=== PATIENT | male | born 1995 | race Caucasian/White ===

== ENCOUNTER 2017-03-02 13:05 | Inpatient (IN) | payer BC, OTHER ==
[~2017-03-02] VITALS: Ht 182.9 cm; Wt 93.0 kg
[2017-03-02 21:30] VITALS: BP 138/74
[2017-03-02] MEDS ORDERED: DIAZEPAM 5 MG TABLET PO PRN (22:30)
[2017-03-02] MEDS ORDERED: MAGNESIUM HYDROXIDE 30 ML LIQUID UDC PO PRN (22:30)
[2017-03-02] MEDS ORDERED: diphenhydrAMINE 50 MG CAPSULE PO PRN (22:30)
[2017-03-02] MEDS ORDERED: IBUPROFEN 600 MG TABLET PO PRN (22:30)
[2017-03-02] MEDS ORDERED: MAG HYDROX/AL HYDROX/SIMETH 30 ML LIQUID UDC PO PRN (22:30)
[2017-03-02] MEDS ORDERED: ONDANSETRON ODT 4 MG TAB.RAPDIS SL PRN (22:30)
[2017-03-02] MEDS ORDERED: CLONIDINE HCL 0.1 MG TABLET PO PRN (22:30)
[2017-03-02] MEDS ORDERED: DICYCLOMINE HCL 20 MG TABLET PO PRN ×2 (22:30)
[2017-03-02] MEDS ORDERED: LOPERAMIDE HCL 2 MG CAPSULE PO PRN ×2 (22:30)
[2017-03-02] MEDS ORDERED: ONDANSETRON 4 MG/2 ML VIAL IM PRN (22:30)
[2017-03-02] MEDS ORDERED: ACETAMINOPHEN 325 MG TABLET PO PRN (22:30)
[2017-03-02] MEDS ORDERED: LORAZEPAM 2 MG/1 ML VIAL IM PRN (22:30)
[2017-03-02] MEDS ORDERED: HYDROXYZINE PAMOATE 25 MG CAPSULE PO PRN (22:30)
[2017-03-02] MEDS ORDERED: BACLOFEN 20 MG TABLET PO PRN (22:30)
[2017-03-02] MEDS ORDERED: MIRALAX 17 GM POWD.PACK PO PRN (22:30)
[2017-03-02] MEDS ORDERED: DIAZEPAM 10 MG TABLET PO PRN ×2 (22:30)
--- NOTE | 2017-03-02 22:30 | NUR ---
Admission Patient is a 22-year-old male, arriving from [facility], to receive treatment for his reported Benzodiazepine Dependence, admitted under the care of Dr. Spring. Patient was escorted on to unit to his room by male LACTATION COORDINATOR, where body check was rendered. Skin check was rendered by primary nurse with skin noted intact. Patient was able to provide Admission Urine Drug Screen upon arrival on the unit. He is alert, oriented, ambulatory with no assistance needed. Breathing even and non labored with no signs of pain or discomfort noted. Patient is cooperative with admission process but verbalizes feelings of anxiety and racing thoughts. Admission Vital signs rendered and noted as 138/74, 83, 98.6, 18, 99%, 0/10. Patients height noted as 60 and weight noted as 205lbs. Patient verbalized No known allergies, wishes to be full code, following a Regular diet. Patient denies any suicidal or homicidal thoughts. Bowel sounds active in all quadrants with LBM verbalized 03/01/17. Patient reports past medical history of Anxiety, Bipolar, Back injury and Shoulder injury in 2010. Patient reports no history of seizure. Patients verbalizes chief complaint as "Im abusing my prescription medication," He explains his use as: 1. Xanax , since 2013, 8mg PO daily, last use 03/01/17 2. Klonopin, since 2013, 4mg PO daily, last use 02/27/17 3. Marijuana, since 2006, quarter of an oz via inhalation daily, Last use 03/02/17 4. Hydrocodone, since 2013, 20mg 1-2 a week, last use 02/27/17 5. Cocaine, Since 2013, 1-2 lines last use 02/27/17 He is able to report his signs and symptoms of withdrawal as "loss of appetite, cant sleep, anxiety, muscle spasms, Restlessness, rapid thoughts, cant concentrate." Patient currently employed cleaning carpets and window washing. He lives at home with his mother. This is the patients first treatment admission. No home medications noted with patient but patient reports of taking Zyprexa 10mg QHS for Bipolar. Patient states it really helps me to sleep. Patient also reports of not abusing Zyprexa medication. Admission CIWA noted at 8. Dr. Spring present during preadmission in intake. All information reviewed with MD with orders for labs to be rendered and PRN Medications available for increased signs and symptoms of Withdrawal. Patient to receive Valium 20mg at 2300 and will start a 5 day Valium tomorrow 03/04/17. Fall and Seizure precautions implemented. All needs attended to promptly. Will continue plan of care as ordered.
[2017-03-02 22:56] LABS: *AMPHETAMINE, URINE NEGATIVE (NEGATIVE); *BARBITURATE, URINE NEGATIVE (NEGATIVE); *CANNABINOID, URINE POSITIVE (NEGATIVE); *COCCAINE, URINE POSITIVE (NEGATIVE); *OPIATE, URINE POSITIVE (NEGATIVE); *PHENCYCLIDINE SCREEN,URINE NEGATIVE (NEGATIVE)
[2017-03-02] MEDS ORDERED: DIAZEPAM 10 MG TABLET PO SCH (23:00)
[2017-03-02] MEDS ORDERED: DIAZEPAM 10 MG TABLET ONE (23:12)
[2017-03-03 00:07] LABS: ETHANOL < 3 MG/DL (0-0)
[2017-03-03 00:10] VITALS: BP 109/63
[2017-03-03 00:11] LABS: ALANINE AMINOTRANSFERASE 32 U/L (16-63); ALBUMIN 3.9 g/dL (3.4-5.0); ALKALINE PHOSPHATASE 100 U/L (50-136); ASPARTATE AMINOTRANSFERASE 21 U/L (15-37); BILIRUBIN,TOTAL 0.3 mg/dL (0.2-1.0); CALCIUM 8.9 mg/dL (8.5-10.1); CARBON DIOXIDE 27 mmol/L (21-32); CHLORIDE 107 mmol/L (98-107); CREATININE 0.9 mg/dL (0.6-1.3); GFR 107 mL/min (>60); GLUCOSE 120 mg/dL (74-106); MAGNESIUM 1.9 mg/dL (1.8-2.4); POTASSIUM 3.8 mmol/L (3.5-5.1); SODIUM SERUM 145 mmol/L (136-145); TOTAL PROTEIN, SERUM 7.2 g/dL (6.4-8.2); UREA NITROGEN, BLOOD 14 mg/dL (7-18)
[2017-03-03 00:16] LABS: BASOPHILS # (AUTO) 0.1 K/uL (0.0-8.0); BASOPHILS % (AUTO) 0.5 % (0.0-2.0); EOSINOPHILS # (AUTO) 0.4 K/uL (0.0-0.7); HEMATOCRIT 42.8 % (36.7-47.1); HEMOGLOBIN 14.4 g/dL (12.5-16.3); LYMPHOCYTES # (AUTO) 2.5 K/uL (20.0-40.0); MEAN CORPUSCULAR HEMOGLOBIN 30.9 uug (23.8-33.4); MEAN CORPUSCULAR HGB CONC 34 g/dL (32.5-36.3); MEAN CORPUSCULAR VOLUME 91.5 fL (73.0-96.2); MONOCYTES # (AUTO) 0.8 K/uL (2.0-10.0); MONOCYTES % (AUTO) 6.9 % (0.0-11.0); NEUTROPHILS # (AUTO) 7.2 K/uL (1.8-8.9); NEUTROPHILS % (AUTO) 65.6 % (38.5-71.5); PLATELET COUNT (AUTO) 362 K/uL (152-348); RED BLOOD CELL COUNT(AUTO) 4.68 MIL/uL (4.06-5.63); RED CELL DISTRIBUTION WIDTH 12.4 % (12.1-16.2)
[2017-03-03 00:17] LABS: THYROID STIMULATING HORMONE 4.104 mIU/mL (0.358-3.740)
[2017-03-03 00:38] LABS: HIV-1 p24 ANTIGEN NON REACTIVE (NONREACTIVE); HIV-1/2 ANTIBODY NON REACTIVE (NONREACTIVE)
[2017-03-03] MEDS ORDERED: OLAN10TA3 PO (01:32)
[2017-03-03 04:15] VITALS: BP 120/66
--- NOTE | 2017-03-03 07:05 | NUR ---
Start of Shift Endorsement received from nightshift nurse. Pt is a 22 y/o male admitted for Xanax and Klonopin dependence. Pt has been palced on a 5 day Valium taper. Pt is tolerating the taper and moderately withdrawing at this time AEB CIWA 8 at 2300. PT received one time dose of Valium 20mg. PT did not receive any prn medications. Pt has slept 4 hours and reports feeling tired and wanting to sleep more. VS WNL. Full Code. PT is alert and oriented x4. Pt is in STABLE condition at this time. Remains compliant with medication and diet regimen. All needs have been met, All safety measures in place per hospital policy. Bed in lowest position, side rails up x2, call-light within reach. Will continue to monitor
--- NOTE | 2017-03-03 07:11 | NUR ---
End of Shift Patient is in bed sleeping. Breathing even and non labored. No signs of pain or discomfort noted. Patient is a 22 year old male, admitted on 03/02/14 for Benzo Dependence and placed on a 5 day Valium taper to start this morning 03/03/17 0900. Patient verbalizes no known allergies, wishes to be full code, following a regular diet, skin noted intact, placed on fall and seizure precautions. Patient verbalized past medical history of Anxiety, Bipolar, lower back injury, as well as right shoulder injury. Admission CIWA noted to be 8. Patient was given a onetime dose of Valium 20mg. Patient was able to tolerate well with no noted increased signs and symptoms of withdrawal. All needs attended to promptly. Will endorse to continue plan of care as ordered.
[2017-03-03 08:00] VITALS: BP 120/72
[2017-03-03] MEDS ORDERED: TUBERCULIN,PURIF.PROT.DERIV. 5 TU/0.1 ML TEST ID ONE (09:00)
[2017-03-03] MEDS ORDERED: GABAPENTIN 300 MG CAPSULE PO SCH (09:00)
[2017-03-03] MEDS: MULTIVITAMINS,THERAPEUTIC TABLET PO SCH (09:11)
[2017-03-03] MEDS: DIAZEPAM 10 MG TABLET PO SCH ×4 (09:12→20:54)
[2017-03-03 12:00] VITALS: BP 110/76
[2017-03-03] MEDS ORDERED: DIAZEPAM 10 MG TABLET PO PRN ×2 (15:00)
[2017-03-03] MEDS ORDERED: DIAZEPAM 5 MG TABLET PO PRN (15:00)
[2017-03-03 16:00] VITALS: BP 119/71
--- NOTE | 2017-03-03 19:10 | NUR ---
Start of Shift Patient Received. Patient is in activities room participating in group meeting. Patient is a 22 year old male, admitted on 03/02/14 for Benzo Dependence and placed on a 5 day Valium taper that started 03/03/17 0900. Patient verbalizes no known allergies, wishes to be full code, following a regular diet, skin noted intact, placed on fall and seizure precautions. Patient verbalized past medical history of Anxiety, Bipolar, lower back injury, as well as left shoulder injury. Per endorsement, No PRN medications administered. Patient was noted with CIWA of 3 at 1600. All needs attended to promptly. Will continue plan of care as ordered.
--- NOTE | 2017-03-03 19:22 | NUR ---
End of Shift Endorsement given to nightshift nurse. Pt is a 22 y/o male admitted for Xanax and Klonopin dependence. Pt has been placed on a 5 day Valium taper. Pt is tolerating the taper and moderately withdrawing at this time AEB CIWA 3 at 1600. PT did not receive any PRN medications. Pt participated in groups and activities.Intake: 2850ml, Void x3, BM x2. VS WNL. Full Code. PT is alert and oriented x4. Pt is in STABLE condition at this time. Remains compliant with medication and diet regimen. All needs have been met, All safety measures in place per hospital policy. Bed in lowest position, side rails up x2, call-light within reach. Will continue to monit
[2017-03-03 20:47] VITALS: BP 151/91
[2017-03-03] MEDS: GABAPENTIN 300 MG CAPSULE PO SCH (20:54)
[2017-03-03] MEDS: OLANZAPINE 5 MG TABLET PO SCH (20:54)
[2017-03-03] MEDS ORDERED: Medication Not On Formulary EA (Olanzapine (Zyprexa) 10 MG) PO SCH (21:00)
[2017-03-04] VITALS (7 sets, daily range): BP systolic 106–153; BP diastolic 51–102
--- NOTE | 2017-03-04 07:06 | NUR ---
End of Shift Patient is in bed sleeping. Breathing even and non labored. No signs of pain or discomfort noted. Patient is a 22 year old male, admitted on 03/02/14 for Benzo Dependence and placed on a 5 day Valium taper that started 03/03/17 0900. Patient verbalizes no known allergies, wishes to be full code, following a regular diet, skin noted intact, placed on fall and seizure precautions. Patient verbalized past medical history of Anxiety, Bipolar, lower back injury, as well as left shoulder injury. No PRN medications administered. All needs attended to promptly. Will endorse to continue plan of care as ordered.
--- NOTE | 2017-03-04 07:45 | NUR ---
START OF SHIFT NOTE Received report from night nurse, 22 year old male admitted for Benzo Dependence. Pt cont on a 5 day Valium taper. Skin noted intact, placed on fall and seizure precautions. Pt reported PMH of Anxiety, Bipolar, lower back injury, as well as left shoulder injury. Per endorsement, No PRN medications were administered. Last CIWA 2, slept for 7 hours. Per night nurse pt was medicated with potassium supplement for low Potassium level. Received pt asleep responsive to verbal and tactile stimuli, breathing normal no SOB noted, skin intact warm and dry to touch. Safety measures ion place, call light within reach. Will cont to monitor.
[2017-03-04 08:17] LABS: BASOPHILS % (AUTO) 0.2 % (0.0-2.0); EOSINOPHILS # (AUTO) 0.7 K/uL (0.0-0.7); EOSINOPHILS % (AUTO) 6.5 % (0.0-7.0); HEMATOCRIT 45.3 % (36.7-47.1); HEMOGLOBIN 15.5 g/dL (12.5-16.3); LYMPHOCYTES # (AUTO) 1.8 K/uL (20.0-40.0); LYMPHOCYTES % (AUTO) 17.1 % (20.5-51.5); MEAN CORPUSCULAR HEMOGLOBIN 31.5 uug (23.8-33.4); MEAN CORPUSCULAR HGB CONC 34 g/dL (32.5-36.3); MEAN CORPUSCULAR VOLUME 91.6 fL (73.0-96.2); MONOCYTES # (AUTO) 0.7 K/uL (2.0-10.0); MONOCYTES % (AUTO) 6.6 % (0.0-11.0); NEUTROPHILS # (AUTO) 7.6 K/uL (1.8-8.9); NEUTROPHILS % (AUTO) 69.6 % (38.5-71.5); PLATELET COUNT (AUTO) 344 K/uL (152-348); RED BLOOD CELL COUNT(AUTO) 4.94 MIL/uL (4.06-5.63); RED CELL DISTRIBUTION WIDTH 12.3 % (12.1-16.2); WHITE BLOOD COUNT (AUTO) 10.8 K/uL (3.6-10.2)
[2017-03-04] MEDS: MULTIVITAMINS,THERAPEUTIC TABLET PO SCH (08:25)
[2017-03-04] MEDS: GABAPENTIN 300 MG CAPSULE PO SCH ×2 (08:25→15:31)
[2017-03-04] MEDS ORDERED: DIAZEPAM 10 MG TABLET PO SCH (09:00)
[2017-03-04 10:37] LABS: CALCIUM 9.4 mg/dL (8.5-10.1); CREATININE 0.9 mg/dL (0.6-1.3); MAGNESIUM 1.9 mg/dL (1.8-2.4); PHOSPHOROUS 4.6 mg/dL (2.5-4.9); POTASSIUM 4.4 mmol/L (3.5-5.1)
[2017-03-04 10:38] LABS: FOLIC ACID 19.8 NG/ML (8.6-58.9)
[2017-03-04 11:27] LABS: THYROID STIMULATING HORMONE 1.64 mIU/mL (0.358-3.740)
[2017-03-04] MEDS: DIAZEPAM 10 MG TABLET PO SCH ×3 (12:26→20:56)
--- NOTE | 2017-03-04 12:35 | NUR ---
PRN ZOFRAN Pt c/o of nausea, non pharmacological intervention ineffective. Pt medicated with PRN Zofran 4mg SL as ordered. Will cont to monitor and reassess the pt.
--- NOTE | 2017-03-04 13:35 | NUR ---
REASSESSMENT Upon reassessment pt reported medication effective nausea subside.
[2017-03-04 16:59] LABS: FREE T4 (FREE THYROXINE) 0.85 ng/dL (0.76-1.46)
--- NOTE | 2017-03-04 17:44 | NUR ---
PRN ZOFRAN Pt c/o of nausea, non pharmacological intervention ineffective. Pt medicated with PRN Zofran 4mg SL as ordered. Will cont to monitor and reassess the pt. Addendum: 03/04/17 at 1904 by EDUARDO RAZO LVN ERROR IN CHARTING, PT DID NOT RECEIVE SECOND DOSE OF ZOFRAN.
[2017-03-04] MEDS ORDERED: DIAZEPAM 10 MG TABLET PO PRN ×2 (19:00)
[2017-03-04] MEDS ORDERED: DIAZEPAM 5 MG TABLET PO PRN (19:00)
--- NOTE | 2017-03-04 19:15 | NUR ---
Start of Shift Patient Received. Patient is in activities room participating in group meeting. Patient is a 22 year old male, admitted on 03/02/14 for Benzo Dependence and placed on a 5 day Valium taper that started 03/03/17. Patient verbalizes no known allergies, wishes to be full code, following a regular diet, skin intact, fall and seizure precautions. Patient verbalized past medical history of Anxiety, Bipolar, lower back injury, as well as left shoulder injury. Per endorsement, PRN Zofran administered at 1235 and noted effective. At 1600 Patient was noted with a CIWA of 2. All needs attended to promptly. Will continue plan of care as ordered.
--- NOTE | 2017-03-04 19:22 | NUR ---
END OF SHIFT NOTE Gave report to night nurse, 22 year old male admitted for Benzo Dependence. Pt cont on a 5 day Valium taper. Skin noted intact, placed on fall and seizure precautions. Pt reported PMH of Anxiety, Bipolar, lower back injury, as well as left shoulder injury. Pt received PRN medication noted effective. Pt attended groups and activities. Last CIWA-2. Pt's total intake 1650ml, Voidedx3, and x1 BM. Safety measures in place, call light within reach. Pt endorsed to night nurse in stable condition.
[2017-03-04] MEDS: OLANZAPINE 5 MG TABLET PO SCH (20:56)
[2017-03-04] MEDS ORDERED: GABAPENTIN 300 MG CAPSULE ONE (20:59)
[2017-03-04] MEDS ORDERED: GABAPENTIN 300 MG CAPSULE PO SCH (21:00)
--- NOTE | 2017-03-04 21:00 | NUR ---
PRN Medication Administration Patient noted to be returning from smoking patio. Blood pressure noted as 153/102 with a pulse of 125. Patient verbalized of smoking 5 cigarettes. PRN Clonidine 0.1mg administered with routine medications. Will continue to monitor for effectiveness of medication.
--- NOTE | 2017-03-04 22:00 | NUR ---
PRN Medication Reassessment Patient was given PRN Clonidine for elevated blood pressure and pulse. Blood pressure reassess and noted as 126/87 and pulse of 93. Will continue to monitor.
[2017-03-05 00:43] VITALS: BP 131/69
[2017-03-05 04:14] VITALS: BP 104/64
--- NOTE | 2017-03-05 07:01 | NUR ---
End of Shift Patient is in bed sleeping. Breathing even and non labored. No signs of pain or discomfort noted. Patient is a 22 year old male, admitted on 03/02/14 for Benzo Dependence and placed on a 5 day Valium taper that started 03/03/17 0900. Patient verbalizes no known allergies, wishes to be full code, following a regular diet, skin noted intact, placed on fall and seizure precautions. Patient verbalized past medical history of Anxiety, Bipolar, lower back injury, as well as left shoulder injury. PRN Clonidine administered for elevated BP and medication noted to be effective. All needs attended to promptly. Will endorse to continue plan of care as ordered.
--- NOTE | 2017-03-05 07:17 | NUR ---
START OF SHIFT NOTE Received report from night nurse, 22 year old male admitted for Benzo Dependence. Pt cont on a 5 day Valium taper. Skin noted intact, placed on fall and seizure precautions. Pt reported PMH of Anxiety, Bipolar, lower back injury, as well as left shoulder injury. Per endorsement, Pt received PRN Clonidine for high blood pressure medication effective per night nurse. Last CIWA 3, slept for 7 hours. Received alert awake oriented x4 in stable condition. Breathing normal no SOB noted, skin intact warm and dry to touch. Pt denies any N/V/D no tremors noted, mild anxiety noted. Educate the pt with current plan of the day and medication regimen with good verbal understanding. Safety measures ion place, call light within reach. Will cont to monitor.
[2017-03-05 08:00] VITALS: BP 108/62
[2017-03-05] MEDS: DIAZEPAM 10 MG TABLET PO SCH ×3 (08:18→21:19)
[2017-03-05] MEDS: MULTIVITAMINS,THERAPEUTIC TABLET PO SCH (08:18)
[2017-03-05] MEDS ORDERED: GABAPENTIN 300 MG CAPSULE PO SCH (09:00)
[2017-03-05] MEDS ORDERED: DIAZEPAM 5 MG TABLET PO SCH (09:00)
[2017-03-05] MEDS ORDERED: ASPIRIN/ACETAMINOPHEN/CAFFEINE TABLET PO PRN (11:30)
[2017-03-05 12:00] VITALS: BP 148/88
[2017-03-05] MEDS: DIVALPROEX 250 MG TABLET.DR PO SCH ×2 (13:41→16:41)
[2017-03-05] MEDS: GABAPENTIN 300 MG CAPSULE PO SCH ×2 (15:09→21:18)
[2017-03-05 16:00] VITALS: BP 145/92
--- NOTE | 2017-03-05 18:49 | NUR ---
END OF SHIFT NOTE Gave report to night nurse, 22 year old male admitted for Benzo Dependence. Pt cont on a 5 day Valium taper. Skin noted intact, placed on fall and seizure precautions. Pt reported PMH of Anxiety, Bipolar, lower back injury, as well as left shoulder injury. Pt attended groups and activities. Last CIWA-3. Vital signs remained stable. Pt was seen by MD with new order of Depakote 250mg started at 1300. Encourage Po fluids as tolerated. Pt's total intake 2091ml, Voidedx4, and x2 BM. Safety measures in place, call light within reach.Will endorse pt to night nurse in stable condition.
--- NOTE | 2017-03-05 19:30 | NUR ---
START OF SHIFT-- Pt is 22 year old male admitted for Benzo Dependence.Pt IS a/o x 4. Pt continues on a 5 day Valium taper. Skin noted intact, placed on fall and seizure precautions. Pt reported PMH of Anxiety, Bipolar, lower back injury, as well as left shoulder injury. Pt attended groups and activities. Last CIWA-3. Vital signs remained stable. PO fluids encouraged as tolerated. Safety measures in place, call light within reach.Will continue to monitor.
[2017-03-05 20:00] VITALS: BP 151/95
[2017-03-05] MEDS: OLANZAPINE 5 MG TABLET PO SCH (21:19)
[2017-03-06] VITALS: BP 117/77
[2017-03-06 04:00] VITALS: BP 118/68
[2017-03-06 06:02] LABS: HCV AB <0.1 s/co ratio (0.0-0.9); HEPATITIS B CORE AB, IgM Negative (Negative); HEPATITIS B SURFACE AG Negative (Negative)
--- NOTE | 2017-03-06 06:37 | NUR ---
END OF SHIFT-- Pt is 22 year old male admitted for Benzo Dependence.Pt IS a/o x 4. Pt continues on a 5 day Valium taper. Skin noted intact, placed on fall and seizure precautions. Pt reported PMH of Anxiety, Bipolar, lower back injury, as well as left shoulder injury. Pt is compliant with his treatment plan.He slept 7 hrs;fluid intake was 2790 ,voided x 4;b/m x 1 . Last CIWA-1. Vital signs remains stable. PO fluids encouraged as tolerated. Safety measures in place, call light within reach.Will continue to monitor
--- NOTE | 2017-03-06 07:44 | NUR ---
START OF SHIFT Received pt this am AOx4. Pt states he "slept good" last night. Slept 7 hours. No PRNs needed per night nurse. Last CIWA 1 per night nurse. Pt states detox meds are effective in controlling s/s of w/d. Encouraged group attendance and activities. Will provide safe and supportive environment. Pt laying in bed with bed locked and in lowest position and call disla within reach. Will continue to monitor.
[2017-03-06 08:04] VITALS: BP 129/73
[2017-03-06] MEDS: MULTIVITAMINS,THERAPEUTIC TABLET PO SCH (08:56)
[2017-03-06] MEDS: DIVALPROEX 250 MG TABLET.DR PO SCH ×3 (08:57→16:52)
[2017-03-06] MEDS: DIAZEPAM 5 MG TABLET PO SCH ×4 (08:57→22:24)
[2017-03-06] MEDS: GABAPENTIN 300 MG CAPSULE PO SCH ×3 (08:57→22:23)
[2017-03-06] MEDS ORDERED: DIAZEPAM 5 MG TABLET PO SCH (09:00)
[2017-03-06 12:00] VITALS: BP 149/79
[2017-03-06 16:00] VITALS: BP 142/83
--- NOTE | 2017-03-06 18:46 | NUR ---
END OF SHIFT: Pt continues on 5 day Valium taper and tolerating well. Last CIWA 1. No PRNs needed during shift. Detox meds are effective in managing s/s of w/d. Pt attended groups and activity today and socialized with peers. Pt is compliant with medications and treatment plan. All needs met. Safety measures in place. Will pass report to oncoming nurse.
[2017-03-06 20:00] VITALS: BP 146/90
--- NOTE | 2017-03-06 20:05 | NUR ---
START OF SHIFT Received report from day shift nurse. Pt attended a group meeting and returned to his room after. He is a 22 yo male admitted to [facility] on 03/02 for BZD dependence. He is A&O x4 and ambulatory. NKA, full code status, and on a regular diet. He has a PMH of anxiety, bipolar, lower back injury, and left shoulder injury. On admission he admitted to using xanax 8mg per day, klonopin 4mg/ day, marijuana 0.25 oz per day, hydrocodone 20mg 1-2x/week, and cocaine "1-2 lines". He is ordered a 5 day valium taper. Pt reports feeling anxious and has moist skin. Taper due tonight. He is cooperative with treatment. Fall and seizure precautions in place. Bed is down with call light in reach.
[2017-03-06] MEDS: CLONIDINE HCL 0.1 MG TABLET PO SCH (22:23)
[2017-03-06] MEDS: OLANZAPINE 5 MG TABLET PO SCH (22:24)
[2017-03-07] VITALS: BP 115/69
--- NOTE | 2017-03-07 04:00 | NUR ---
Vitals refused Pt refused to be woken for 0400 Vitals. CIWA ordered Q4HWA. Respirations even and unlabored. Bed is down with call light in reach.
--- NOTE | 2017-03-07 07:18 | NUR ---
END OF SHIFT Report provided to day shift nurse. Pt is lying in bed resting. He is a 22 yo male admitted to [facility] on 03/02 for BZD dependence. He is A&O x4 and ambulatory. NKA, full code status, and on a regular diet. He has a PMH of anxiety, bipolar, lower back injury, and left shoulder injury. On admission he admitted to using xanax 8mg per day, klonopin 4mg/ day, marijuana 0.25 oz per day, hydrocodone 20mg 1-2x/week, and cocaine "1-2 lines". He is ordered a 5 day valium taper. No PRN medications administered. He is cooperative with treatment. Last CIWA was 1. He drank 2650mL and slept 7 hours. Fall and seizure precautions in place. Bed is down with call light in reach.
--- NOTE | 2017-03-07 07:52 | NUR ---
START OF SHIFT NOTE Received report from night nurse, 22 year old male admitted for Benzo Dependence. Pt cont on a 5 day Valium taper tolerating well. Skin noted intact, placed on fall and seizure precautions. Pt reported PMH of Anxiety, Bipolar, lower back injury, as well as left shoulder injury. Per endorsement, Pt did not receive any PRN medication, Last CIWA 1, slept for 7 hours. Received alert awake oriented x4 in stable condition. Breathing normal no SOB noted, skin intact warm and dry to touch. Pt denies any N/V/D no tremors noted, mild anxiety noted. Educate the pt with current plan of the day and medication regimen with good verbal understanding. Safety measures ion place, call light within reach. Will cont to monitor.
[2017-03-07 08:00] VITALS: BP 117/70
[2017-03-07] MEDS: DIVALPROEX 250 MG TABLET.DR PO SCH ×3 (08:40→16:29)
[2017-03-07] MEDS: GABAPENTIN 300 MG CAPSULE PO SCH ×3 (08:40→21:51)
[2017-03-07] MEDS: CLONIDINE HCL 0.1 MG TABLET PO SCH ×2 (08:40→21:51)
[2017-03-07] MEDS: MULTIVITAMINS,THERAPEUTIC TABLET PO SCH (08:40)
[2017-03-07] MEDS: DIAZEPAM 5 MG TABLET PO SCH ×3 (08:40→21:51)
[2017-03-07] MEDS ORDERED: DIAZEPAM 5 MG TABLET PO SCH (09:00)
[2017-03-07 12:00] VITALS: BP 105/56
[2017-03-07 16:00] VITALS: BP 112/60
--- NOTE | 2017-03-07 17:30 | NUR ---
LAB RESULT MD COMMUNICATION Pt lab result came noted with low Valproic acid 29L. Psychiatrist notify with no new order at this time.
--- NOTE | 2017-03-07 19:02 | NUR ---
END OF SHIFT NOTE Gave report to night nurse, 22 year old male admitted for Benzo Dependence. Pt cont on a 5 day Valium taper. Skin noted intact, placed on fall and seizure precautions. Pt reported PMH of Anxiety, Bipolar, lower back injury, as well as left shoulder injury. Pt attended groups and activities. Last CIWA-1. Pt did not receive any PRN medication. Vital signs were stable during shift. Encouraged Po fluids as tolerated. Pt's total intake 2365ml, Voidedx4, and x1 BM. Safety measures in place, call light within reach. Pt endorsed to night nurse in stable condition.
--- NOTE | 2017-03-07 19:25 | NUR ---
START OF SHIFT Received report from day shift nurse. Pt attended a group meeting and returned to his room after. He is a 22 yo male admitted to [facility] on 03/02 for BZD dependence. He is A&O x4 and ambulatory. NKA, full code status, and on a regular diet. He has a PMH of anxiety, bipolar, lower back injury, and left shoulder injury. On admission he admitted to using xanax 8mg per day, klonopin 4mg/ day, marijuana 0.25 oz per day, hydrocodone 20mg 1-2x/week, and cocaine "1-2 lines". Pt started a 5 day valium taper on 03/03. Pt has moist skin and mild anxiety. Fall and seizure precautions in place. Bed is down with call light in reach. Addendum: 03/08/17 at 0355 by KING BOND RN Incorrect entry time.
[2017-03-07 20:00] VITALS: BP_SYST 147; BP_SYST 153; BP_DIAS 95; BP_DIAS 97
--- NOTE | 2017-03-07 20:10 | NUR ---
START OF SHIFT Received report from day shift nurse. Pt attended a group meeting and returned to his room after. He is a 22 yo male admitted to [facility] on 03/02 for BZD dependence. He is A&O x4 and ambulatory. NKA, full code status, and on a regular diet. He has a PMH of anxiety, bipolar, lower back injury, and left shoulder injury. On admission he admitted to using xanax 8mg per day, klonopin 4mg/ day, marijuana 0.25 oz per day, hydrocodone 20mg 1-2x/week, and cocaine "1-2 lines". Pt has moist skin and mild anxiety. Fall and seizure precautions in place. Bed is down with call light in reach.
[2017-03-07] MEDS: OLANZAPINE 5 MG TABLET PO SCH (21:51)
[2017-03-07 23:20] VITALS: BP 138/88
[2017-03-08] VITALS: BP 138/88
[2017-03-08 04:00] VITALS: BP 120/68
--- NOTE | 2017-03-08 04:00 | NUR ---
0400 COWS and CIWA deferred COWS and CIWA is ordered Q4HWA.
--- NOTE | 2017-03-08 07:21 | NUR ---
END OF SHIFT Report provided to day shift nurse. Pt is lying in bed resting. He is a 22 yo male admitted to [facility] on 03/02 for BZD dependence. He is A&O x4 and ambulatory. NKA, full code status, and on a regular diet. He has a PMH of anxiety, bipolar, lower back injury, and left shoulder injury. On admission he reported using xanax 8mg per day, klonopin 4mg/ day, marijuana 0.25 oz per day, hydrocodone 20mg 1-2x/week, and cocaine "1-2 lines". Pt is cooperative with treatment. No PRN medications administered. Last CIWA was 1. He drank 2038mL and slept for 6 hours. Fall and seizure precautions in place. Bed is down with call light in reach.
[2017-03-08 08:00] VITALS: BP 122/67
--- NOTE | 2017-03-08 08:00 | NUR ---
Start of Shift Pt is a 22 year old male admitted for benzo dependence, placed on 5 day Valium taper. PMH: anxiety, bipolar, lower back injury and left should injury, nka, regular diet, fall/seizure precautions. Upon assessment, pt is alert/oriented x4, reports mild anxiety, reports mild aches throughout body, skin flushed, respirations even and unlabored, denies SOB/chest pain, denies SI/HI, denies n/v/d, bowel sounds active x4, abdomen soft. Safety measures in place, call light within reach, side rails up x2, bed locked and in low position. Will continue to monitor.
[2017-03-08] MEDS: MULTIVITAMINS,THERAPEUTIC TABLET PO SCH (08:23)
[2017-03-08] MEDS: GABAPENTIN 300 MG CAPSULE PO SCH ×3 (08:23→21:27)
[2017-03-08] MEDS: DIVALPROEX 250 MG TABLET.DR PO SCH (08:23)
[2017-03-08] MEDS: DIAZEPAM 5 MG TABLET PO SCH ×2 (08:23→21:28)
[2017-03-08] MEDS: CLONIDINE HCL 0.1 MG TABLET PO SCH ×2 (08:33→21:28)
[2017-03-08 12:00] VITALS: BP 133/80
--- NOTE | 2017-03-08 12:11 | NUR ---
Therapist encouraged client to attend group.
[2017-03-08 16:00] VITALS: BP 136/80
[2017-03-08] MEDS: DIVALPROEX 500 MG TABLET.DR PO SCH (16:48)
[2017-03-08] MEDS ORDERED: DIVALPROEX 250 MG TABLET.DR PO SCH (17:00)
--- NOTE | 2017-03-08 19:00 | NUR ---
End of Shift Pt is a 22 year old male admitted for benzo dependence, placed on 5 day Valium taper. PMH: anxiety, bipolar, lower back injury and left should injury, nka, regular diet, fall/seizure precautions. During, pt presented with mild anxiety, reported mild aches throughout body, skin flushed - scheduled taper medications administered during shift, effective in management of s/s of withdrawal as reported by pt, CIWA 2 at 1600. PRN Milk of Magnesia 30ml administered for constipation, no reports of a bm as or yet, will endorse onto shiftman nurse to monitor effectiveness. Patient encouraged to attend group therapies/sessions to learn new coping skills. Patient encouraged adequate PO fluid intake as tolerated. Intake of 3009 ml PO, with voids x4, stool x1. Safety measures in place, call light within reach, side rails up x2, bed locked and in low position. Endorsed to shiftman nurse.
--- NOTE | 2017-03-08 19:15 | NUR ---
Start of Shit Note: Patient is a 22 y/o male admitted on 03/02/17 for Benzo dependence. Patient reported using Xanax 8mg daily and Klonopin 0.25 mg daily. Patient also reported using Marijuana 0.25 mg daily, [place] 20mg every 1-2 weeks, & Cocaine "1-2 lines daily". Patient with past medical history of Anxiety, Bipolar disorder, Lower Back injury & Left Shoulder Injury. No seizure history noted. Patient is on a regular diet with no known food and drug allergies. Full Code status. Patient is on a 5-day Valium taper and tolerating well. Last CIWA is 2. No PRN's given during day shift. Patient is alert & oriented. Patient is ambulatory with a steady gait. Patient noted with a flat affect. Patient is stable. No shortness of breath noted. Respiration even & unlabored. Abdomen soft & non-distended. Bowel sounds active in all four quadrants. No nausea/vomiting noted. Patient denies pain/discomfort. Bilateral hand tremors felt. No hallucinations. Patient denies SI/HI. Safety precautions are in place. Bed locked in lowest position. Both side rails up. Call light within pt's reach. Will continue to monitor patient.
[2017-03-08 20:00] VITALS: BP 153/85
[2017-03-08] MEDS: OLANZAPINE 5 MG TABLET PO SCH (21:28)
[2017-03-09] VITALS: BP 124/58
[2017-03-09 04:00] VITALS: BP 92/57
--- NOTE | 2017-03-09 07:30 | NUR ---
End of Shift Note: Patient had an uneventful night. Patient remained stable throughout my shift. Vitals remains WNL. Last CIWA 2 noted. Pt was not given any PRN medications during my shift. Patient remained compliant in treatment plan. Pt still asleep at this time and appears comfortable in bed. No shortness of breath noted. Respiration even & unlabored. Patient was able to sleep for a total of 6 hours. Consumed 2128ml of fluids. Voided 3x with 2x bowel movement. All needs attended & met. Safety precautions are in place. Bed locked in lowest position. Both side rails up. Call light within pt's reach. Will endorse pt to day shift nurse.
--- NOTE | 2017-03-09 07:40 | NUR ---
Start Of Shift Received Pt is a 22 year old male admitted for benzo dependence, completed his 5 day Valium taper. NKA, regular diet, continues on fall/seizure precautions. Upon morning assessment, pt is alert/oriented x4, reports mild anxiety, skin flushed, respirations even and unlabored . No PRNs needed during burner technician per burner technician RN. Pt slept a total of 6 hours, his last CIWA was a 2 taken at 0400. Encouraged increased fluids to help facilitate detox. Will provide safe and supportive environment. All safety measures in place, bed locked in lowest position, side rails upx2 will continue to monitor and provide care.
[2017-03-09 08:00] VITALS: BP 114/71
[2017-03-09] MEDS: CLONIDINE HCL 0.1 MG TABLET PO SCH ×2 (09:00→21:41)
[2017-03-09] MEDS: DIVALPROEX 500 MG TABLET.DR PO SCH ×2 (09:00→17:45)
[2017-03-09] MEDS: GABAPENTIN 300 MG CAPSULE PO SCH ×3 (09:00→21:41)
[2017-03-09] MEDS: MULTIVITAMINS,THERAPEUTIC TABLET PO SCH (09:00)
[2017-03-09 12:00] VITALS: BP 124/79
--- NOTE | 2017-03-09 12:18 | NUR ---
Therapist encouraged client to attend group therapy session.
[2017-03-09 16:00] VITALS: BP 129/67
--- NOTE | 2017-03-09 19:02 | NUR ---
End Of Shift Pt is a 22 year old male admitted for Benzo dependency. Full code regular diet continues to be on fall and seizure precautions, NKA. Patient alert and oriented x4, vital signs were stable during shift. Patient compliant with therapeutic plan of care. Patient completed the 5 day Valium taper as ordered, well tolerated, no ASE noted. Pt to be discharged tomorrow. Patient encouraged adequate PO fluid intake as tolerated. Upon assessment patient presented with c/o chills, mild anxiety, and barely sweating with his last CIWA score of: 2 @1600. Detox medication effective at reducing withdrawal symptoms. Patient encouraged to attend group therapies/sessions to learn new coping skills to recent relapse, noted attending and participating, patient denies SI/HI. Pt ate all of his meals his total fluid intake was 2128ml with 2 void and 1 bowel movement , No PRN medications administered. Safety measures in place. Call light kept within reach. Patient endorsed to hourly shift manager nurse, all pertinent information discussed.
[2017-03-09 19:03] LABS: *AMPHETAMINE, URINE NEGATIVE (NEGATIVE); *BARBITURATE, URINE NEGATIVE (NEGATIVE); *CANNABINOID, URINE POSITIVE (NEGATIVE); *COCCAINE, URINE NEGATIVE (NEGATIVE); *OPIATE, URINE NEGATIVE (NEGATIVE); *PHENCYCLIDINE SCREEN,URINE NEGATIVE (NEGATIVE)
--- NOTE | 2017-03-09 19:15 | NUR ---
Start of Shit Note: Received pt from day shift nurse. Patient is a 22 y/o male admitted on 03/02/17 for Benzo dependence. Patient with past medical history of Anxiety, Bipolar disorder, Lower Back injury & Left Shoulder Injury. No seizure history noted. Patient is on a regular diet with no known food and drug allergies. Full Code status. Patient completed his Valium taper and he is scheduled to be discharge tomorrow. Urine drug screen collected and resulted. Last CIWA is 2. No PRN's given during day shift. Patient is alert & oriented. Patient is ambulatory with a steady gait. Patient noted with a flat affect. Patient is stable. No shortness of breath noted. Respiration even & unlabored. Abdomen soft & non-distended. Bowel sounds active in all four quadrants. No nausea/vomiting noted. Patient denies pain/discomfort. No hand tremors noted. No hallucinations. Patient denies SI/HI. Safety precautions are in place. Bed locked in lowest position. Both side rails up. Call light within pt's reach. Will continue to monitor patient.
[2017-03-09 20:00] VITALS: BP 142/90
[2017-03-09] MEDS: OLANZAPINE 5 MG TABLET PO SCH (21:41)
[2017-03-09] MEDS ORDERED: Baclofen PO (22:07)
[2017-03-09] MEDS ORDERED: Divalproex Sodium PO (22:07)
[2017-03-09] MEDS ORDERED: Olanzapine PO (22:07)
[2017-03-09] MEDS ORDERED: HYDR-3895 PO (22:07)
[2017-03-09] MEDS ORDERED: CLON0.1T14 PO (22:07)
[2017-03-09] MEDS ORDERED: Gabapentin PO ×2 (22:07)
[2017-03-10 04:00] VITALS: BP 119/76
--- NOTE | 2017-03-10 07:22 | NUR ---
End of Shift Note: Patient had an uneventful night. Patient remained stable throughout my shift. Vitals remains WNL. Patient is scheduled to be discharge today. Urine drug screen collected and resulted. Last CIWA 1 noted. Pt was not given any PRN medications during my shift. Patient remained compliant in treatment plan. Pt still asleep at this time and appears comfortable in bed. No shortness of breath noted. Respiration even & unlabored. Patient was able to sleep for a total of 6 hours. Consumed 1337ml of fluids. Voided 2x with 1x bowel movement. All needs attended & met. Safety precautions are in place. Bed locked in lowest position. Both side rails up. Call light within pt's reach. Will endorse pt to day shift nurse.
[2017-03-10 08:00] VITALS: BP 137/72
--- NOTE | 2017-03-10 08:05 | NUR ---
START OF SHIFT: RECEIVED PT A/O X 4. HE STATES HE FEELS PRETTY GOOD WITH SOME MILD ANXIETY ABOUT UPCOMING DISCHARGE THIS AM. MEDICATED ORDERED. CIWA 1. DISCHARGE PLANNING IN PROGRESS. WILL CONTINUE TO MONITOR.
[2017-03-10] MEDS: DIVALPROEX 500 MG TABLET.DR PO SCH (08:21)
[2017-03-10 08:22] VITALS: BP 137/72
[2017-03-10] MEDS: CLONIDINE HCL 0.1 MG TABLET PO SCH (08:22)
[2017-03-10] MEDS: GABAPENTIN 300 MG CAPSULE PO SCH (08:22)
[2017-03-10] MEDS: MULTIVITAMINS,THERAPEUTIC TABLET PO SCH (08:22)
--- NOTE | 2017-03-10 09:35 | NUR ---
DISCHARGE: PT IS A/O X 4. HE DENIES S/I AND H/I. HE STATES HE FEELS ENTHUSIASTIC ABOUT RECOVERY AND REALLY WANTS IT.EDUCATED PT ON DISCHARGE INSTRUCTIONS AND MEDICATIONS. HE VERBALLY EXPRESSED UNDERSTANDING OD EDUCATION. BELONGINGS RETURNED. OXYGEN EQUIPMENT TECHNICIAN ESCORTED PT TO [facility] WHERE HE WAS TRANSPORTED BY [facility] TO [facility] AT 0930.
[2017-03-10 16:11] LABS: *BENZODIAZEPINES Positive (.); *CANNABINOID (THC) Positive (.); *COCAINE Positive (.); *CODEINE Positive (.); *HYDROMORPHONE Negative (Cutoff=300); *NORDIAZEPAM Negative (Cutoff=300); *OPIATES Positive ng/mL (Cutoff=300); *OXAZEPAM Negative (Cutoff=300)
== END 2017-03-10 09:30 | disposition other institution (70) | DRG 895 ==
LOC: SRC 21:14
PROVIDERS: ADMIT Internal Medicine; ATTEND Internal Medicine
PROC: HZ2ZZZZ Detoxification Services for Substance Abuse Treatment (ICD-10-PCS; principal; 2017-03-02)
PROC: HZ31ZZZ Individual Counseling for Substance Abuse Treatment, Behavioral (ICD-10-PCS; 2017-03-03)
PROC: HZ41ZZZ Group Counseling for Substance Abuse Treatment, Behavioral (ICD-10-PCS; 2017-03-05)
DX: F13.230 Sedative, hypnotic or anxiolytic dependence with withdrawal, uncomplicated (principal); F31.62 Bipolar disorder, current episode mixed, moderate; F40.01 Agoraphobia with panic disorder; G47.00 Insomnia, unspecified; Z81.1 Family history of alcohol abuse and dependence; Z81.8 Family history of other mental and behavioral disorders; G89.29 Other chronic pain; F11.10 Opioid abuse, uncomplicated; F14.10 Cocaine abuse, uncomplicated; M54.5 Low back pain; I15.9 Secondary hypertension, unspecified; E07.81 Sick-euthyroid syndrome; F12.90 Cannabis use, unspecified, uncomplicated; F17.200 Nicotine dependence, unspecified, uncomplicated; D72.823 Leukemoid reaction; R73.9 Hyperglycemia, unspecified
CPT/HCPCS: 36415; 70030-TC; 80164; 80307; 80346; 80349; 80353; 80361; 82746; 83735; 84100; 84443; 85025; 86580; 86592; 86705; 86803; 87340; 87806; A4663; G6040-TC; J3490; Q0162